=== PATIENT | male | born 2000 | race Caucasian/White ===

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

== ENCOUNTER 2023-11-20 11:28 | Emergency (ER) | payer BC, SELFPAY ==
[2023-11-20 11:48] VITALS: BP 143/70; PULSE 73; RESP 16; TEMP 36.9; O2SAT 97; BMI 22.3
--- NOTE | 2023-11-20 12:07 | PC.NURSE ---
patient has pustules on cheeks and across forehead, resembling acne. states it gets better with Abx prescribed and then worse when he is off them. cream he was prescribed worked best and the pills did not seem to help as much. pt states sometimes it itches and some times it hurts slightly but it doesn't really bother him.
--- NOTE | 2023-11-20 12:25 | ED_ITS ---
HPI - Skin/Abscess/Foreign Bdy <Mitzi Arana PA-C - Last Filed: 11/20/23 12:31> General Chief complaint: Skin/Abscess/Foreign Body Stated complaint: Facial rash break out Time Seen by Provider: 11/20/23 12:00 History of Present Illness HPI narrative: Patient is a 23-year-old male who presents with a facial rash. He reports being seen several times in the walk-in clinic and treated with various oral antibiotics and topical antibiotics. These have helped for a time but then the rash has come back. Right now it is the worst it has ever been. He does have an appointment with a perfect bind machine operator in 2 weeks. The rash is sometimes itchy, mildly painful. It is across his forehead and cheeks. He admits to a lax skin hygiene routine. He denies fever, chills, ear pain, difficulty breathing, swelling or lesions in his mouth. Related Data Previous Rx's Medication Instructions Recorded omeprazole 20 mg capsule,delayed 20 mg PO QDAY #30 caps 05/24/16 release albuterol sulfate 90 mcg/actuation 2 puff INH Q4HP PRN #1 inh 12/06/16 aerosol inhaler (Ventolin HFA) fluoxetine 20 mg capsule 20 mg PO QAM #30 caps 02/18/18 methylphenidate HCl 36 mg 36 mg PO QAM #30 tabs 01/18/20 tablet,extended release 24 hr methylphenidate HCl 36 mg 36 mg PO DAILY ADHD #30 tabs 02/17/20 tablet,extended release 24 hr methylphenidate HCl 36 mg 36 mg PO DAILY ADHD #30 tabs 02/17/20 tablet,extended release 24 hr methylphenidate HCl 36 mg 36 mg PO DAILY ADHD #30 tabs 02/17/20 tablet,extended release 24 hr adapalene 0.1 %-benzoyl peroxide 1 applic topical BEDTIME #45 grams 11/20/23 2.5 % topical gel with pump Allergies Allergy/AdvReac Type Severity Reaction Status Date / Time No Known Drug Allergies Allergy Verified 09/30/23 09:54 Review of Systems <Mitzi Arana PA-C - Last Filed: 11/20/23 12:31> Review of Systems ROS Unobtainable: All systems reviewed & are unremarkable except as noted in HPI and below Patient History <Mitzi Arana PA-C - Last Filed: 11/20/23 12:31> Medical History [place] syndrome Pectus carinatum Attention deficit hyperactivity disorder (ADHD), predominantly inattentive type, in remission Social History Smoking Status: Former smoker Smoking Status: Former smoker alcohol intake frequency: 0-2 drinks per day Substance Use Type: marijuana and hallucinogens Exam <Mitzi Arana PA-C - Last Filed: 11/20/23 12:31> Narrative Exam Narrative: GENERAL: 23 year old patient appears stated age. Well-developed patient, in no acute distress. NEURO: AOx3. HEAD: Atraumatic. Normocephalic. EYES: Pupils equal round and reactive. Extraocular motions intact. No scleral icterus. No injection or drainage. ENT: Nose without bleeding or purulent drainage. Airway patent. RESPIRATORY: No distress. EXTREMITIES: No edema or joint tenderness. SKIN: Rash across forehead consistent with acne vulgaris with inflammatory papules and pustules. No underlying erythema concerning for cellulitis. Initial Vital Signs Initial Vital Signs: Vital Signs Temperature 98.4 F 11/20/23 11:48 Pulse Rate 73 11/20/23 11:48 Respiratory Rate 16 11/20/23 11:48 Blood Pressure 143/70 H 11/20/23 11:48 Pulse Oximetry 97 11/20/23 11:48 Oxygen Delivery Method Room Air 11/20/23 11:48 <Kailey Roa MD - Last Filed: 11/20/23 12:49> Initial Vital Signs Initial Vital Signs: Vital Signs Temperature 98.4 F 11/20/23 11:48 Pulse Rate 73 11/20/23 11:48 Respiratory Rate 16 11/20/23 11:48 Blood Pressure 143/70 H 11/20/23 11:48 Pulse Oximetry 97 11/20/23 11:48 Oxygen Delivery Method Room Air 11/20/23 11:48 Course <Mitzi Arana PA-C - Last Filed: 11/20/23 12:31> Vital Signs Vital signs: Vital Signs - 8 hr 11/20/23 11:48 11/20/23 12:27 Temperature 98.4 F Pulse Rate 73 63 Respiratory Rate 16 18 Blood Pressure 143/70 H 125/56 L Pulse Oximetry 97 99 Oxygen Delivery Method Room Air Room Air <Kailey Rao MD - Last Filed: 11/20/23 12:49> Vital Signs Vital signs: Vital Signs - 8 hr 11/20/23 11:48 11/20/23 12:27 Temperature 98.4 F Pulse Rate 73 63 Respiratory Rate 16 18 Blood Pressure 143/70 H 125/56 L Pulse Oximetry 97 99 Oxygen Delivery Method Room Air Room Air MDM - Skin/Abscess/Foreign Bdy <Mitzi Arana PA-C - Last Filed: 11/20/23 12:31> MDM Narrative Medical decision making narrative: Multiple etiologies for patient's symptoms considered including, but not limited to: Cellulitis, acne, contact dermatitis Patient's rash consistent with acne vulgaris with inflammatory papules and pustules. In the past he was treated by the walk-in clinic with oral cephalosporin, clotrimazole and mupirocin. Although the rash improved with these, I believe the rash is more consistent with acne and I have prescribed topical adapalene and benzoyl peroxide. Patient should follow up as scheduled with Dermatology in 2 weeks. Provided additional patient education from up-to-date and return precautions. Patient's symptoms improved over duration of stay with above-stated therapies. Findings and discharge diagnosis discussed with patient/family followed by verbalization of understanding Return precautions discussed with patient/family whom verbalize understanding of diagnosis and plan Discharge Plan Departure Patient Disposition: Home Clinical Impression: Acne Qualifiers: Acne type: acne vulgaris Qualified Code(s): L70.0 - Acne vulgaris Instructions: DI for Acne, Benzoyl Peroxide Topical Activity Restrictions/Additional Instructions: *You have been diagnosed with acne vulgaris. I have prescribed a gel that you should use once a day at bedtime to treat this. Hopefully will see some improvements but you definitely should follow up with dermatology as scheduled. This medication can irritate your skin and can bleach hair and clothing. Please be aware of this when you use it. I have also attached some information about benzoyl peroxide which is another medication that you can get to treat acne. It is available [id number] and a low strength. I have also attached information about managing acne. *What to do: *Please continue to take your regular medications as directed. [x] New medication prescriptions sent to your pharmacy: [facility] [ ] New medication written as a paper prescription [ ] No new medications given *Please follow up with your primary care provider in 2-3 days, call for an appointment. Let them know you were seen in the Emergency Department and that we ask that you be seen in follow up. We will electronically transmit a record of today's note if your PCP is in our system *If you do not have a primary care provider please contact the [facility] Resource line at [phone]. They will ask some questions about your medical history and help get you set up with a doctor in the community. *Return to Emergency Department if you should have any new, worsening or concerning symptoms, such as [fever greater than 101 F, shaking chills, worsening pain, persistent vomiting or other concerning symptoms]. Prescriptions: New adapalene-benzoyl peroxide 0.1-2.5 % gel with pump 1 applic topical BEDTIME Qty: 45 0RF Rx Instructions: may irritate your skin. May bleach hair or clothes Discontinued mupirocin 2 % ointment 1 applic topical TID Qty: 15 0RF adapalene 0.1 % gel 1 applictn TOP BEDTIME Qty: 45 11RF No Action methylphenidate HCl 36 mg tablet extended release 24hr 36 mg PO DAILY Qty: 30 0RF Rx Instructions: Take 1 tablet after breakfast each morning methylphenidate HCl 36 mg tablet extended release 24hr 36 mg PO DAILY Qty: 30 0RF Rx Instructions: Take 1 tablet after breakfast each morning methylphenidate HCl 36 mg tablet extended release 24hr 36 mg PO DAILY Qty: 30 0RF Rx Instructions: Take 1 tablet by mouth each morning after breakfast omeprazole 20 MG capsule,delayed release(DR/EC) 20 mg PO QDAY Qty: 30 5RF albuterol sulfate [Ventolin HFA] 90 MCG/PUFF HFA aerosol inhaler 2 puff INH Q4HP PRNQty: 1 12RF methylphenidate HCl 36 mg tablet extended release 24hr 36 mg PO QAM Qty: 30 0RF fluoxetine 20 mg capsule 20 mg PO QAM Qty: 30 2RF Referrals: Miscellaneous,Doctor, [Primary Care Provider] - Stand Alone Forms: Patient Portal/API ED Sign-out <Kailey Rao MD - Last Filed: 11/20/23 12:49> Cosign ED Attending Cosignature Attestation: I was immediately available in the department for consultation throughout this patient's visit. Kailey Rao MD
[2023-11-20 12:27] VITALS: BP 125/56; PULSE 63; RESP 18; O2SAT 99
== END 2023-11-20 12:28 | disposition home or self-care (01) ==
PROVIDERS: Emergency Provider Physician Assistant; Family Provider Pediatrics
DX: L70.0 Acne vulgaris (principal)
CPT/HCPCS: 99281; 99282